=== PATIENT | female | born 1945 | race Caucasian/White ===

== ENCOUNTER 2024-02-11 09:44 | Emergency (ER) | payer MEDICARE, SELFPAY ==
[2024-02-11 10:08] VITALS: BP 151/93; PULSE 91; RESP 16; TEMP 36.2; O2SAT 98
--- NOTE | 2024-02-11 10:14 | ED.NAVMDI ---
HPI - Nausea/Vomiting/Diarrhea General Chief complaint: Nausea/Vomiting/Diarrhea Stated complaint: n/v/d Time Seen by Provider: 02/11/24 10:14 Source: patient, family, RN notes reviewed and old records reviewed Mode of arrival: ambulatory Limitations: no limitations History of Present Illness HPI Narrative: 78 year old female accompanied by son presents to express care with complains of 4-5 days of nausea and vomiting and diarrhea. Patient reports that she has not had emesis today, ate 1/4 of bagel and drank about 2-3 oz of water. Patient reports that she was starting to have some nausea on last bite of plain bagel so stopped eating any further. Patient reports some intermittent sharp mid lower abdomen pain across her abdomen. Patient reports no past history of any colon problems such as diverticulitis or colitis. Patient does have history of diabetes, hypertension and elevated cholesterol and states that she has been taking her medications as prescribed, has not been checking her sugars. Glucose in clinic 145 per fingerstick. Patient reports last emesis yesterday and last diarrhea was last p.m. Patient states that she has [employer] urinary implant for her bladder frequency. Patient states that she feels weak and shaky, mucous membranes noted to be dry. MD elicited complaint: nausea, vomiting, diarrhea and abdominal pain Onset (ago): day(s) (4-5 days) Description of vomiting: food contents Description of diarrhea: watery Associated nausea: Yes Associated abdominal pain: Yes Location of pain: other (across mid lower abdomen) Pain consistency: intermittent Quality: sharp Treatment prior to arrival: none Related Data Home Medications Medication Instructions Recorded Confirmed atorvastatin 40 mg tablet 40 mg DIRECTED 02/11/24 02/11/24 calcium citrate 200 mg (950 mg) 20 mg DIRECTED 02/11/24 02/11/24 tablet cholecalciferol (vitamin D3) 25 25 mcg DIRECTED 02/11/24 02/11/24 mcg (1,000 unit) tablet cyanocobalamin (vitamin B-12) 1,000 mcg DIRECTED 02/11/24 02/11/24 1,000 mcg tablet doxycycline monohydrate 50 mg 50 mg DIRECTED 02/11/24 02/11/24 capsule duloxetine 30 mg capsule,delayed 30 mg PO DIRECTED 02/11/24 02/11/24 release empagliflozin 10 mg tablet 10 mg DIRECTED 02/11/24 02/11/24 (Jardiance) glipizide 10 mg tablet 10 mg DIRECTED 02/11/24 02/11/24 indapamide 2.5 mg tablet 2.5 mg DIRECTED 02/11/24 02/11/24 metformin 1,000 mg tablet 1,000 mg DIRECTED 02/11/24 02/11/24 montelukast 10 mg tablet 10 mg DIRECTED 02/11/24 02/11/24 nystatin 100,000 unit/gram topical 1 applic topical DIRECTED 02/11/24 02/11/24 cream omeprazole 20 mg capsule,delayed 20 mg DIRECTED 02/11/24 02/11/24 release Allergies Allergy/AdvReac Type Severity Reaction Status Date / Time No Known Allergies Allergy Verified 02/11/24 10:11 Review of Systems Review of Systems: CONSTITUTIONAL: Denies fever, chills, or sweats. ENT: Denies rhinorrhea, congestion, sore throat, or otalgia. CARDIOVASCULAR: Denies chest pain, palpitations, or edema. RESPIRATORY: Denies cough or dyspnea. GASTROINTESTINAL: Reports abdominal pain across mid lower abdomen,positive for nausea, vomiting, diarrhea. GENITOURINARY: Denies dysuria or hematuria. SKIN: Denies rash or itching. MUSCULOSKELETAL: Denies back pain, joint pain, or myalgia. NEUROLOGIC: Denies headache, numbness, positive for weakness. All systems reviewed & are unremarkable except as noted in HPI and below PMFSH Past Medical History Medical History (Updated 02/11/24 @ 11:09 by Mai Cohen NP) Diabetes Elevated cholesterol Hypertension Memory changes Urine frequency has [employer] urinary implant Surgical History Surgical History (Updated 02/11/24 @ 10:53 by Mai Cohen NP) History of partial hysterectomy Social History Social History (Updated 02/11/24 @ 10:54 by Mai Cohen NP) Smoking status: Never smoker Alcohol intake: unkno
[2024-02-11 10:30] LABS: Glucose Point of Care 145 mg/dl (65-105)
== END 2024-02-11 10:41 | disposition short-term general hospital (02) ==
LOC: EXPTROY 09:52
PROVIDERS: Emergency Provider Registered Nurse
DX: E86.0 Dehydration (principal); R11.2 Nausea with vomiting, unspecified; R19.7 Diarrhea, unspecified; E11.9 Type 2 diabetes mellitus without complications; Z79.84 Long term (current) use of oral hypoglycemic drugs; E78.00 Pure hypercholesterolemia, unspecified; I10 Essential (primary) hypertension; Z90.711 Acquired absence of uterus with remaining cervical stump
CPT/HCPCS: 82948; 99212; G0463

== ENCOUNTER 2024-02-11 10:53 | Emergency (ER) | payer MEDICARE, SELFPAY ==
--- NOTE | ~2024-02-11 | CT_ITS ---
EXAMINATION: CT abdomen pelvis w con DATE: 02/11/2024 12:40 INDICATION: Lower abdominal pain TECHNIQUE: Computed tomography (CT) of the abdomen and pelvis was performed with 100 mL Omnipaque-350 intravenous contrast. Automated exposure control and iterative reconstruction technique were employe d. The dose-length product was 405.48 mGy-cm. COMPARISON: None FINDINGS: Lung bases are clear. Heart size is normal. No pericardial or pleural effusion. Small sliding-type hi atal hernia. 7 mm low-attenuation cyst versus hemangioma in the left hepatic lobe. Gallbladder, splee n, pancreas, bilateral adrenal glands are normal. 3.6 m gas and fluid-filled duodenal diverticulum po sterior to the head and uncinate process of the pancreas. Bilateral renal peripelvic cysts the larges t on the right measuring 4.8 cm. Air-fluid level within the otherwise normal-appearing bladder. The u terus is not identified and has likely been surgically resected. Pelvic floor relaxation. Bowels incl uding the appendix are normal. No free intraperitoneal gas or fluid. There is calcified atheroscleros is of the aorta and many of the other arteries. No pathologically enlarged abdominal or pelvic lympha denopathy. Mild lumbar levocurvature with severe lumbosacral spondylosis and mild to moderate spondyl osis in the more cephalad lumbar spine. Moderate bilateral hip osteoarthritis. Sacral nerve root stim ulator with lead extending through the right S3 neural foramen. IMPRESSION: 1. Gas in the otherwise normal-appearing bladder. Correlate for recent instrumentation or Rendon timothy terization and with urinalysis. 2. No other acute intra-abdominal/pelvic process. Reviewed, dictated and finalized at location A. IMPRESSION: 1. Gas in the otherwise normal-appearing bladder. Correlate for recent instrume ntation or Rendon catheterization and with urinalysis. 2. No other acute intra-abdominal/pelvic process.
[2024-02-11 10:57] VITALS: BP 175/86; PULSE 85; RESP 15; TEMP 36.4; O2SAT 98
[2024-02-11 11:30] LABS: Basophils Absolute Auto 0.1 K/mm3 (0.0-0.1); Basophils Percent Auto 0.5 % (0.2-1.2); Eosinophils Absolute Auto 0.1 K/mm3 (0-0.3); Eosinophils Percent Auto 0.5 % (0-4.4); Hematocrit 51.5 % (37.0-47.0); Hemoglobin 17.1 g/dL (12.0-15.0); Immature Granulocyte Absolute 0.03 K/mm3 (0.00-0.031); Immature Granulocyte Percent A 0.2 % (0-0.5); Lymphocytes Absolute Auto 2.44 K/mm3 (0.9-3.2); Lymphocytes Percent Auto 18.9 % (18.3-44.2); Mean Corpuscular HGB Conc 33.2 g/dl (32-36); Mean Corpuscular Hemoglobin 30.2 pg (26-34); Mean Corpuscular Volume 90.8 fl (80-100); Mean Platelet Volume 9.8 fl (7.4-10.4); Monocytes Percent Auto 7.9 % (2.6-8.5); Neutrophils Absolute Auto 9.3 K/mm3 (1.3-6.7); Platelet Count Result 305 k/mm3 (150-375); Red Blood Count 5.67 M/mm3 (4.2-5.4); Red Cell Distribution Width 13.8 % (11.5-14.5); White Blood Count 12.9 K/mm3 (4.5-10.0)
[2024-02-11 11:39] LABS: Appearance Urine Clear (Clear); Bacteria Urine None Seen /hpf; Bilirubin Urine Negative (Negative); Blood Urine Negative (Negative); Color Urine Yellow (Yellow); Glucose Urine UA 3+ mg/dL (Negative); Ketones Urine 3+ mg/dL (Negative); Leukocyte Esterase Ur Trace LEU/UL (Negative); Nitrate Urine Negative (Negative); Protein Urine Negative (Negative); RBC Urine 0-2 /hpf (0-2); Specific Grav Ur 1.035 (1.001-1.035); Squamous Epithelial Cell Urine Few /hpf (Few); Urobilinogen Urine 0.2 mg/dL (<2.0); pH Urine 5.5 (5.0-9.0)
[2024-02-11 11:41] LABS: Alanine Aminotransferase 29 U/L (6-35); Alkaline Phosphatase 92 U/L (38-126); Anion Gap 20 mmol/L (4-12); Aspartate Amino Transferase 29 U/L (14-36); Bilirubin,Total 1.6 mg/dL (0.2-1.3); Blood Urea Nitrogen 22 mg/dL (7-17); Calcium 10.1 mg/dL (8.4-10.2); Carbon Dioxide 24 mmol/L (22-30); Chloride 94 mmol/L (98-107); Estimated CRCL calculation 47 ml/min; Estimated Glomerular Filt Rate > 60; Glucose 166 mg/dL (65-110); Lipase 41 U/L (23-300); Sodium 138 mmol/L (137-145)
[2024-02-11 12:00] LABS: Add Urine Microscopic? YES
[2024-02-11] MEDS: SODIUM CHLORIDE 0.9% IV 1,000 ML 999 ML IV CONT (12:12)
[2024-02-11] MEDS: ONDANSETRON INJ 4 MG/2 ML VIAL IV PUSH (12:13)
[2024-02-11] MEDS: MORPHINE SULFATE (*CRX) 4 MG/ML INJ IV PUSH (12:13)
--- NOTE | 2024-02-11 12:40 | ED.ABDPAIN ---
HPI - Abdominal Pain General Chief Complaint: Abdominal Pain <Kingsley Song PA-C - Last Filed: 02/11/24 18:28> Stated Complaint: abd pain, N/V <Kingsley Song PA-C - Last Filed: 02/11/24 18:28> Time Seen by Provider: 02/11/24 11:32 <CRUZITO Hurtado Last Filed: 02/11/24 18:28> Source: patient <CRUZITO Hurtado Last Filed: 02/11/24 18:28> Mode of arrival: ambulatory <CRUZITO Hurtado Last Filed: 02/11/24 18:28> Limitations: no limitations <CRUZITO Hurtado Last Filed: 02/11/24 18:28> History of Present Illness HPI narrative: This is a 78-year-old female who presents to the ED for chief complaint of N/V/ D for the past week. She is traveling to visit her son who is bedside. Reports some associated lower abdominal pain rated 5/10. States that she is unable to keep anything down to the nausea. She did travel here by flight and symptoms seem to be onset a couple of days after her travel day. Denies fevers, chills, urinary symptoms, flank pain, chest pain, shortness of breath, cough, sore throat. <CRUZITO Hurtado Last Filed: 02/11/24 18:28> Related Data Home Medications: Home Medications Medication Instructions Recorded Confirmed atorvastatin 40 mg tablet 40 mg DIRECTED 02/11/24 02/11/24 calcium citrate 200 mg (950 mg) 20 mg DIRECTED 02/11/24 02/11/24 tablet cholecalciferol (vitamin D3) 25 25 mcg DIRECTED 02/11/24 02/11/24 mcg (1,000 unit) tablet cyanocobalamin (vitamin B-12) 1,000 mcg DIRECTED 02/11/24 02/11/24 1,000 mcg tablet doxycycline monohydrate 50 mg 50 mg DIRECTED 02/11/24 02/11/24 capsule duloxetine 30 mg capsule,delayed 30 mg PO DIRECTED 02/11/24 02/11/24 release empagliflozin 10 mg tablet 10 mg DIRECTED 02/11/24 02/11/24 (Jardiance) glipizide 10 mg tablet 10 mg DIRECTED 02/11/24 02/11/24 indapamide 2.5 mg tablet 2.5 mg DIRECTED 02/11/24 02/11/24 metformin 1,000 mg tablet 1,000 mg DIRECTED 02/11/24 02/11/24 montelukast 10 mg tablet 10 mg DIRECTED 02/11/24 02/11/24 nystatin 100,000 unit/gram topical 1 applic topical DIRECTED 02/11/24 02/11/24 cream omeprazole 20 mg capsule,delayed 20 mg DIRECTED 02/11/24 02/11/24 release <Kingsley Song PA-C - Last Filed: 02/11/24 18:28> Allergies/Adverse Reactions: Allergies Allergy/AdvReac Type Severity Reaction Status Date / Time No Known Allergies Allergy Verified 02/11/24 10:11 <Kingsley Song PA-C - Last Filed: 02/11/24 18:28> Review of Systems Review of Systems: All systems as dictated in HPI <Kingsley Song PA-C - Last Filed: 02/11/24 18:28> [facility] Past Medical History Medical History: Medical History (Updated 02/12/24 @ 00:02 by Heather Raymond) Diabetes Elevated cholesterol Hypertension Memory changes Urine frequency has [employer] urinary implant <Kingsley Song PA-C - Last Filed: 02/11/24 18:28> Surgical History Surgical History: Surgical History (Updated 02/11/24 @ 10:53 by Mai Cohen NP) History of partial hysterectomy <CRUZITO Hurtado Last Filed: 02/11/24 18:28> Social History Social History: Social History (Updated 02/12/24 @ 11:39 by Sushma Robles MD) Smoking status: Never smoker Alcohol intake: unknown Substance use type: does not use Additional living arrangements comments: Lives in [place], [place]; family in [place] Occupation/Education: retired Gender identity (if verbalized by the patient): Female <CRUZITO Hurtado Last Filed: 02/11/24 18:28> Exam Narrative: GENERAL: Well-appearing, well-nourished, and in no acute distress. HEAD: Normocephalic, atraumatic. EYES: PERRLA and EOMI. ENT: Nares clear, no rhinorrhea or epistaxis. Mucous membranes moist. Oropharynx without tonsillar hypertrophy exudate or other lesions. NECK: Supple. No adenopathy or masses. CHEST: No respiratory distress. Clear to auscultation. No whe
[2024-02-11 12:55] VITALS: BP 144/87; PULSE 71; RESP 15; O2SAT 99
[2024-02-11] MEDS: POTASSIUM CHLORIDE 20 MEQ ER TABLET 40 MEQ PO (13:54)
[2024-02-11 15:51] VITALS: PULSE 68; RESP 16; TEMP 36.9; O2SAT 98
== END 2024-02-11 15:51 | disposition home or self-care (01) ==
PROVIDERS: Student in an Organized Health Care Education/Training Program; Emergency Provider Physician Assistant
DX: K52.9 Noninfective gastroenteritis and colitis, unspecified (principal); N39.0 Urinary tract infection, site not specified; E11.9 Type 2 diabetes mellitus without complications; I10 Essential (primary) hypertension; Z79.899 Other long term (current) drug therapy; Z79.84 Long term (current) use of oral hypoglycemic drugs
CPT/HCPCS: 36415; 74177; 80053; 81001; 82948; 83690; 85025; 87086; 87088; 96361; 96365; 96375; 99284; A9270; J0696; J2270; J2405; J7030; Q9967